=== PATIENT | male | born 1960 | race African-American/Black ===

== ENCOUNTER 2018-03-05 07:15 | Emergency (ER) | payer OTHER ==
--- NOTE | 2018-03-05 07:41 | ER ---
Nurse's Notes [facility] Name: Harrison Cameron Age: 57 yrs Sex: Male : 1960 Arrival Date: 03/05/2018 Time: 07:19 Bed 13 Private MD: Oz Dee Diagnosis: Local infection of the skin and subcutaneous tissue, unspecified;Cough Presentation: 03/05 07:26 Presenting complaint: Patient states: Woke up yesterday with bite on top of head and jl7 near front hairline. Appears swollen and red. Denies pain. Transition of care: patient was not received from another setting of care. Onset of symptoms was March 04, 2018. Risk Assessment: Do you want to hurt yourself or someone else? Patient reports no desire to harm self or others. Initial Sepsis Screen: Does the patient meet any 2 criteria? No. Patient's initial sepsis screen is negative. Does the patient have a suspected source of infection? No. Patient's initial sepsis screen is negative. Care prior to arrival: None. 07:26 Method Of Arrival: Ambulatory [facility] 07:26 Acuity: RAJINDER 5 jl7 Triage Assessment: 07:31 Bite description: bite sustained to top of head is superficial, was sustained 1 day jl7 ago. by an unknown animal, animal information: vaccination(s) is unknown. General: Appears in no apparent distress. comfortable, Behavior is calm, cooperative, appropriate for age. Pain: Denies pain. EENT: No signs and/or symptoms were reported regarding the EENT system. Neuro: Level of Consciousness is awake, alert, obeys commands, Oriented to person, place, time, situation. Cardiovascular: Patient's skin is warm and dry. Respiratory: Airway is patent Respiratory effort is even, unlabored, Respiratory pattern is regular, symmetrical. GI: No signs and/or symptoms were reported involving the gastrointestinal system. : No signs and/or symptoms were reported regarding the genitourinary system. Derm: Skin is pink, warm \\T\\ dry. Historical: - Allergies: : No Known Allergies; jl7 - Home Meds: : Bystolic oral oral [Active]; Plavix Oral [Active]; Hydralazine Oral [Active]; jl7 - PMHx: : Hypertension; CVA; 7 - PSHx: 07:31 None; jl7 - Immunization history:: Adult Immunizations up to date. - Social history:: Smoking status: Patient uses tobacco products, smokes one-half pack cigarettes per day, Patient uses alcohol, on a daily basis. admits to "couple of beers" a day. Patient/guardian denies using street drugs. - Ebola Screening: : No symptoms or risks identified at this time. Screenin:25 Abuse screen: Denies threats or abuse. Denies injuries from another. Nutritional hb screening: No deficits noted. Tuberculosis screening: No symptoms or risk factors identified. Fall Risk None identified. Assessment: 07:40 General: See triage assessment. jl7 Vital Signs: 07:24 BP 180 / 108; Pulse 67; Resp 16; Temp 98.6(TE); Pulse Ox 97% on R/A; hb ED Course: 07:19 Patient arrived in ED. sb2 07:19 Oz Dee MD is Private Physician. sb2 07:21 Aura Richards RN is Primary Nurse. jl7 07:24 Arm band placed on left wrist. hb 07:25 Patient has correct armband on for positive identification. Bed in low position. Call hb light in reach. 07:29 Triage completed. jl7 07:29 Chester Reilly PA is PHCP. jr8 07:29 Davon Vargas MD is Attending Physician. jr8 07:40 Oz Dee MD is Referral Physician. jr8 07:56 No provider procedures requiring assistance completed. Patient did not have IV access hb during this emergency room visit. Administered Medications: No medications were administered Outcome: 07:41 Discharge ordered by . jr8 07:56 Discharged to home ambulatory. hb 07:56 Condition: stable 07:56 Discharge instructions given to patient, Instructed on discharge instructions, follow up and referral plans. medication usage, Demonstrated understanding of instructions, follow-up care, medications, wound care, Prescriptions given X 2. 07:57 Patient left the ED. jl7 Signatures: Chester Reilly PA PA jr8 Marilynn Campuzano, RN RN Aura Richards RN RN jl7 Lesley Gaines sb2
--- NOTE | 2018-03-05 07:42 | EDPHYS ---
Physician Documentation [facility] Name: Harrison Cameron Age: 57 yrs Sex: Male : 1960 Arrival Date: 03/05/2018 Time: 07:19 Bed 13 Private MD: Oz Dee ED Physician Davon Vargas HPI: 03/05 07:42 This 57 yrs old Black Male presents to ER via Ambulatory with complaints of Insect Bite jr8 and cough. 07:42 Patient stated that he felt as if mosquitos were biting him on his head when going to jr8 work yesterday. Had woken up this morning with redness to top of head. Also has had cough for last two days. Denies fevers or shortness of breath. Severity of symptoms: At their worst the symptoms were mild in the emergency department the symptoms are unchanged. The patient has not experienced similar symptoms in the past. The patient has not recently seen a physician. Historical: - Allergies: 07:31 No Known Allergies; jl7 - Home Meds: 07:31 Bystolic oral oral [Active]; Plavix Oral [Active]; Hydralazine Oral [Active]; jl7 - PMHx: 07:31 Hypertension; CVA; jl7 - PSHx: 07:31 None; jl7 - Immunization history:: Adult Immunizations up to date. - Social history:: Smoking status: Patient uses tobacco products, smokes one-half pack cigarettes per day, Patient uses alcohol, on a daily basis. admits to "couple of beers" a day. Patient/guardian denies using street drugs. - Ebola Screening: : No symptoms or risks identified at this time. ROS: 07:42 Eyes: Negative for injury, pain, redness, and discharge, ENT: Negative for injury, jr8 pain, and discharge, Neck: Negative for injury, pain, and swelling, Cardiovascular: Negative for chest pain, palpitations, and edema, Abdomen/GI: Negative for abdominal pain, nausea, vomiting, diarrhea, and constipation, Back: Negative for injury and pain, MS/Extremity: Negative for injury and deformity, Neuro: Negative for headache, weakness, numbness, tingling, and seizure. 07:42 Respiratory: Positive for cough, Negative for dyspnea on exertion, hemoptysis, orthopnea, pleurisy, shortness of breath, sputum production, wheezing. 07:42 Skin: Positive for erythema, of the scalp. Exam: 07:42 Head/Face: Normocephalic, atraumatic. Eyes: Pupils equal round and reactive to light, jr8 extra-ocular motions intact. Lids and lashes normal. Conjunctiva and sclera are non-icteric and not injected. Cornea within normal limits. Periorbital areas with no swelling, redness, or edema. ENT: Nares patent. No nasal discharge, no septal abnormalities noted. Tympanic membranes are normal and external auditory canals are clear. Oropharynx with no redness, swelling, or masses, exudates, or evidence of obstruction, uvula midline. Mucous membranes moist. Neck: Trachea midline, no thyromegaly or masses palpated, and no cervical lymphadenopathy. Supple, full range of motion without nuchal rigidity, or vertebral point tenderness. No Meningismus. Cardiovascular: Regular rate and rhythm with a normal S1 and S2. No gallops, murmurs, or rubs. Normal PMI, no JVD. No pulse deficits. Respiratory: Lungs have equal breath sounds bilaterally, clear to auscultation and percussion. No rales, rhonchi or wheezes noted. No increased work of breathing, no retractions or nasal flaring. Abdomen/GI: Soft, non-tender, with normal bowel sounds. No distension or tympany. No guarding or rebound. No evidence of tenderness throughout. Back: No spinal tenderness. No costovertebral tenderness. Full range of motion. MS/ Extremity: Pulses equal, no cyanosis. Neurovascular intact. Full, normal range of motion. Neuro: Awake and alert, GCS 15, oriented to person, place, time, and situation. Cranial nerves II-XII grossly intact. Motor strength 5/5 in all extremities. Sensory grossly intact. Cerebellar exam normal. Normal gait. 07:42 Skin: Patient has mild erythema to two areas on scalp. Small well circumscribed area to top of head without pustule or vesicles. Another small scattered region of erythema noted to left frontal region of scalp. No vesicles, papules, or pustules noted. Vital Signs: 07:24 BP 180 / 108; Pulse 67; Resp 16; Temp 98.6(TE); Pulse Ox 97% on R/A; hb MDM: 07:29 Patient medically screened. jr8 07:40 Data reviewed: vital signs, nurses notes, and as a result, I will discharge patient. jr8 Data interpreted: Pulse oximetry: on room air is 97 %. Interpretation: normal. Counseling: I had a detailed discussion with the patient and/or guardian regarding: the historical points, exam findings, and any diagnostic results supporting the discharge/admit diagnosis, the need for outpatient follow up, a family practitioner, to return to the emergency department if symptoms worsen or persist or if there are any questions or concerns that arise at home. Administered Medications: No medications were administered Disposition: 11:14 Co-signature as Attending Physician, Davon Vargas MD. rn Disposition: 03/05/18 07:41 Discharged to Home. Impression: Local infection of the skin and subcutaneous tissue, unspecified, Cough. - Condition is Stable. - Discharge Instructions: Cellulitis, Rash, Cough, Adult. - Prescriptions for Bactroban 2 % Topical Ointment - Apply to affected area 1 application by TOPICAL route every 12 hours; 30 gram. Prednisone 20 mg Oral Tablet - take 1 tablet by ORAL route once daily for 5 days; 5 tablet. - Medication Reconciliation Form, Thank You Letter, Antibiotic Education, Prescription Opioid Use form. - Follow up: Oz Dee MD; When: 1 week; Reason: Recheck today's complaints, Continuance of care, Re-evaluation by your physician. - Problem is new. - Symptoms have improved. Signatures: Davon Vargas MD MD rn Roszak, Josh, PA PA jr8 Aura Richards RN RN jl7 Corrections: (The following items were deleted from the chart) 07:57 07:41 03/05/2018 07:41 Discharged to Home. Impression: Local infection of the skin and jl7 subcutaneous tissue, unspecified; Cough. Condition is Stable. Forms are Medication Reconciliation Form, Thank You Letter, Antibiotic Education, Prescription Opioid Use. Follow up: Oz Dee; When: 1 week; Reason: Recheck today's complaints, Continuance of care, Re-evaluation by your physician. Problem is new. Symptoms have improved. jr8
[2018-03-05 08:15] VITALS: BP 180/108; TEMP 98.6; O2SAT 97
== END 2018-03-05 07:57 | disposition home or self-care (01) ==
LOC: ER 07:15
DX: L08.9 Local infection of the skin and subcutaneous tissue, unspecified (principal); R05 Cough
CPT/HCPCS: 99282

== ENCOUNTER 2018-03-14 13:21 | Emergency (ER) | payer OTHER, SELFPAY ==
[2018-03-14 15:59] LABS: Absolute Lymphocytes (CBC) 2.3 K/uL (0.7-4.9); Absolute Monocytes 1.1 K/uL (0.1-1.3); Absolute Neutrophil 4.1 K/uL (1.8-8.0); Basophils % 0.6 % (0-1.3); Eosinophils % 1.2 % (0-4.4); Hematocrit 46.8 % (39.6-49.0); Lymphocytes % 30.2 % (15.3-44.8); MCH 30.2 pg (27.0-35.0); MPV 6.8 fL (7.6-11.3); Monocytes % 14.5 % (3.3-12.3); RBC Red Blood Cell Count 5.25 M/uL (4.33-5.43)
[2018-03-14 16:09] LABS: Potassium 3.7 mEq/L (3.6-5.0)
[2018-03-14 16:15] LABS: Albumin 4.5 g/dL (3.2-5.5); Bilirubin Direct 0.1 mg/dL (0-0.2); Bilirubin Total 0.7 mg/dL (0.3-1.2); Protein, Total 8.7 g/dL (6.0-8.3)
--- NOTE | 2018-03-14 16:16 | RAD REPORT ---
EXAM DESCRIPTION: CT - Stone Protocol - 03/14/2018 3:26 pm CLINICAL HISTORY: Abdominal pain. Left flank pain for 3 days COMPARISON: None. TECHNIQUE: Computed axial tomography of the abdomen pelvis was obtained without oral or IV contrast. Lack of IV and oral contrast limits evaluation of solid organs, bowel, and vessels. Coronal reformat thao images were obtained and reviewed. All CT scans are performed using dose optimization technique as appropriate and may include automated exposure control or mA/KV adjustment according to patient size. FINDINGS: A renal calculus is not seen. An ureteral calculus is not noted. A bladder calculus is not present. The liver, spleen, pancreas and adrenals appear grossly normal There is no evidence of diverticulitis. The appendix appears normal A moderate amount of stool is present throughout the colon . Atherosclerotic changes are seen IMPRESSION: Negative for a genitourinary calculus
[2018-03-14 17:23] LABS: Urine Blood NEGATIVE (NEG); Urine Glucose NEGATIVE (NEG); Urine Protein NEGATIVE (NEG); Urine pH 5.5 (5.0-7.0)
[2018-03-14 17:26] LABS: Urine Bacteria <20 /HPF (NONE SEEN); Urine Culture Reflex Order NOT NEEDED; Urine Mucus 3+ /HPF (NONE SEEN); Urine RBC <5 /HPF (NONE SEEN)
--- NOTE | 2018-03-14 18:15 | EDPHYS ---
Physician Documentation [facility] Name: Harrison Cameron Age: 57 yrs Sex: Male : 1960 Arrival Date: 03/14/2018 Time: 13:24 Bed 15 Private MD: Oz Dee ED Physician Jez Hinds HPI: 03/14 15:43 This 57 yrs old Black Male presents to ER via Ambulatory with complaints of Left flank pm1 pain. 15:43 The patient presents with pain that is acute, with no known mechanism of injury. The pm1 symptoms are located in the left low back. Onset: The symptoms/episode began/occurred 3 day(s) ago. The pain radiates. Associated signs and symptoms: Pertinent negatives: abdominal pain, chest pain, dysuria, fever, nausea, numbness, tingling, vomiting, SOB. The problem was sustained from unknown cause. Modifying factors: The patient symptoms are alleviated by Bending over when pain attacks, the patient symptoms are aggravated by nothing. Severity of symptoms: in the emergency department the symptoms have improved. The patient has not experienced similar symptoms in the past. The patient has not recently seen a physician. Historical: - Allergies: 13:57 No Known Allergies; aj - Home Meds: 13:57 Bystolic Oral [Active]; Hydralazine Oral [Active]; Plavix Oral [Active]; atorvastatin aj oral oral [Active]; - PMHx: 13:57 CVA; Hypertension; aj - PSHx: 13:57 None; aj - Immunization history:: Adult Immunizations up to date. - Social history:: Smoking status: Patient uses tobacco products, smokes one-half pack cigarettes per day. - Ebola Screening: : Patient negative for fever greater than or equal to 101.5 degrees Fahrenheit, and additional compatible Ebola Virus Disease symptoms Patient denies exposure to infectious person Patient denies travel to an Ebola-affected area in the 21 days before illness onset. ROS: 15:43 Constitutional: Negative for fever, chills, and weight loss, Eyes: Negative for injury, pm1 pain, redness, and discharge, ENT: Negative for injury, pain, and discharge, Neck: Negative for injury, pain, and swelling, Cardiovascular: Negative for chest pain, palpitations, and edema, Respiratory: Negative for shortness of breath, cough, wheezing, and pleuritic chest pain, Abdomen/GI: Negative for abdominal pain, nausea, vomiting, diarrhea, and constipation. 15:43 : Negative for injury, bleeding, discharge, and swelling, MS/Extremity: Negative for injury and deformity, Skin: Negative for injury, rash, and discoloration, Neuro: Negative for headache, weakness, numbness, tingling, and seizure. 15:43 Back: Positive for flank pain, on the left, Negative for decreased range of motion. Exam: 15:43 Constitutional: This is a well developed, well nourished patient who is awake, alert, pm1 and in no acute distress. Head/Face: Normocephalic, atraumatic. Eyes: Pupils equal round and reactive to light, extra-ocular motions intact. Lids and lashes normal. Conjunctiva and sclera are non-icteric and not injected. Cornea within normal limits. Periorbital areas with no swelling, redness, or edema. ENT: Nares patent. No nasal discharge, no septal abnormalities noted. Tympanic membranes are normal and external auditory canals are clear. Oropharynx with no redness, swelling, or masses, exudates, or evidence of obstruction, uvula midline. Mucous membranes moist. Neck: Trachea midline, no thyromegaly or masses palpated, and no cervical lymphadenopathy. Supple, full range of motion without nuchal rigidity, or vertebral point tenderness. No Meningismus. Chest/axilla: Normal chest wall appearance and motion. Nontender with no deformity. No lesions are appreciated. Cardiovascular: Regular rate and rhythm with a normal S1 and S2. No gallops, murmurs, or rubs. No pulse deficits. Respiratory: Lungs have equal breath sounds bilaterally, clear to auscultation and percussion. No rales, rhonchi or wheezes noted. No increased work of breathing, no retractions or nasal flaring. Abdomen/GI: Soft, non-tender, with normal bowel sounds. No distension or tympany. No guarding or rebound. No evidence of tenderness throughout. 15:43 Skin: Warm, dry with normal turgor. Normal color with no rashes, no lesions, and no evidence of cellulitis. MS/ Extremity: Pulses equal, no cyanosis. Neurovascular intact. Full, normal range of motion. 15:43 Back: pain, is absent, normal spinal alignment noted, vertebral tenderness, is not appreciated. 15:43 Neuro: Orientation: is normal, Motor: is normal, moves all fours, Sensation: is normal, no obvious gross deficits. Vital Signs: 13:58 BP 150 / 110; Pulse 70; Resp 16; Temp 97.5; Pulse Ox 97% on R/A; Weight 65.77 kg; aj Height 5 ft. 7 in. (170.18 cm); 16:12 BP 149 / 98; Pulse 62; Resp 16; Pulse Ox 100% on R/A; ae1 17:09 BP 141 / 91; Pulse 60; Resp 16; Pulse Ox 99% on R/A; ae1 13:58 Body Mass Index 22.71 (65.77 kg, 170.18 cm) aj MDM: 15:02 Patient medically screened. pm1 15:46 Data reviewed: vital signs. Data interpreted: Pulse oximetry: on room air is 97 %. pm1 Interpretation: normal. 16:18 Counseling: I had a detailed discussion with the patient and/or guardian regarding: the pm1 historical points, exam findings, and any diagnostic results supporting the discharge/admit diagnosis, lab results, radiology results, the need for outpatient follow up, to return to the emergency department if symptoms worsen or persist or if there are any questions or concerns that arise at home. 03/14 15:12 Order name: Basic Metabolic Panel; Complete Time: 16:17 pm1 03/14 15:12 Order name: CBC with Diff; Complete Time: 16:17 pm1 03/14 15:12 Order name: Hepatic Function; Complete Time: 16:17 pm1 03/14 15:12 Order name: Lipase; Complete Time: 16:17 pm1 03/14 15:12 Order name: Urine Microscopic Only; Complete Time: 17:35 pm1 03/14 17:12 Order name: Urine Dipstick--Ancillary (enter results); Complete Time: 17:35 aa5 03/14 15:12 Order name: IV Saline Lock; Complete Time: 15:53 pm1 03/14 15:12 Order name: Labs collected and sent; Complete Time: 15:53 pm1 03/14 15:12 Order name: Urine Dipstick-Ancillary (obtain specimen); Complete Time: 16:21 pm1 03/14 15:12 Order name: CT Stone Protocol; Complete Time: 16:17 pm1 Administered Medications: No medications were administered Disposition: 03/14/18 18:14 Discharged to Home. Impression: Low back pain. - Condition is Stable. - Discharge Instructions: Back Pain, Adult. - Medication Reconciliation Form, Thank You Letter, Work release form form. - Follow up: Emergency Department; When: As needed; Reason: Worsening of condition. Follow up: Oz Dee MD; When: 2 - 3 days; Reason: Recheck today's complaints, Continuance of care, Re-evaluation by your physician. - Problem is new. - Symptoms have improved. Addendum: 03/16/2018 13:37 Co-signature as Attending Physician, Jez Hinds MD. g s Signatures: Dispatcher [employer] EDMS Catie Mendoza RN RN aj Prince Berrios NP WAITER/WAITRESS HEAD pm1 Jose Luis De La Rosa RN RN ae1 Jez Hinds MD MD Corrections: (The following items were deleted from the chart) 03/14 18:25 18:14 03/14/2018 18:14 Discharged to Home. Impression: Low back pain. Condition is ae1 Stable. Forms are Medication Reconciliation Form, Thank You Letter, Antibiotic Education, Prescription Opioid Use. Follow up: Emergency Department; When: As needed; Reason: Worsening of condition. Follow up: Oz Dee; When: 2 - 3 days; Reason: Recheck today's complaints, Continuance of care, Re-evaluation by your physician. Problem is new. Symptoms have improved. pm1
--- NOTE | 2018-03-14 18:15 | ER ---
Nurse's Notes [facility] Name: Harrison Cameron Age: 57 yrs Sex: Male : 1960 Arrival Date: 03/14/2018 Time: 13:24 Bed 15 Private MD: Oz Dee Diagnosis: Low back pain Presentation: 03/14 13:55 Presenting complaint: Patient states: Left flank pain for 3 days that is worse with aj movement. Denies urinary symptoms. Transition of care: patient was not received from another setting of care. Onset of symptoms was March 11, 2018. Risk Assessment: Do you want to hurt yourself or someone else? Patient reports no desire to harm self or others. Care prior to arrival: None. 13:55 Method Of Arrival: Ambulatory 13:55 Acuity: RAJINDER 3 aj 16:13 Initial Sepsis Screen: Does the patient meet any 2 criteria? No. Patient's initial ae1 sepsis screen is negative. Does the patient have a suspected source of infection? No. Patient's initial sepsis screen is negative. Triage Assessment: 13:57 General: Appears in no apparent distress. comfortable, Behavior is calm, cooperative, aj appropriate for age. Pain: Complains of pain in left low back, left mid back, anterior aspect of left lateral abdomen and posterior aspect of left lateral abdomen Pain currently is 7 out of 10 on a pain scale. Neuro: Level of Consciousness is awake, alert, obeys commands, Oriented to person, place, time, situation, Appropriate for age. Respiratory: Airway is patent Respiratory effort is even, unlabored, Respiratory pattern is regular, symmetrical. Derm: Skin is intact, is healthy with good turgor, Skin is pink, warm \T\ dry. normal. Musculoskeletal: Range of motion: intact in all extremities, Reports pain in anterior aspect of left lateral abdomen and posterior aspect of left lateral abdomen. Historical: - Allergies: 13:57 No Known Allergies; aj - Home Meds: 13:57 Bystolic Oral [Active]; Hydralazine Oral [Active]; Plavix Oral [Active]; atorvastatin aj oral oral [Active]; - PMHx: 13:57 CVA; Hypertension; aj - PSHx: 13:57 None; aj - Immunization history:: Adult Immunizations up to date. - Social history:: Smoking status: Patient uses tobacco products, smokes one-half pack cigarettes per day. - Ebola Screening: : Patient negative for fever greater than or equal to 101.5 degrees Fahrenheit, and additional compatible Ebola Virus Disease symptoms Patient denies exposure to infectious person Patient denies travel to an Ebola-affected area in the 21 days before illness onset. Screenin:53 Abuse screen: Denies threats or abuse. Nutritional screening: No deficits noted. ae1 Tuberculosis screening: No symptoms or risk factors identified. Fall Risk None identified. Assessment: 15:15 General: Appears in no apparent distress. uncomfortable, slender, Behavior is calm, ae1 cooperative. Pain: Complains of pain in left low back and left mid back. Neuro: Level of Consciousness is awake, alert, obeys commands, Oriented to person, place, time, situation. Cardiovascular: Heart tones S1 S2 present Patient's skin is warm and dry. Respiratory: Airway is patent Respiratory effort is even, unlabored, Respiratory pattern is regular, symmetrical, Breath sounds are clear bilaterally. GI: No signs and/or symptoms were reported involving the gastrointestinal system. : No signs and/or symptoms were reported regarding the genitourinary system. EENT: No signs and/or symptoms were reported regarding the EENT system. Derm: Skin is normal. Musculoskeletal: no visible swelling, bruising or deformity. patient denies injury. 17:08 Reassessment: Patient appears in no apparent distress at this time. Patient and/or ae1 family updated on plan of care and expected duration. Pain level reassessed. Patient states feeling better. Vital Signs: 13:58 BP 150 / 110; Pulse 70; Resp 16; Temp 97.5; Pulse Ox 97% on R/A; Weight 65.77 kg; aj Height 5 ft. 7 in. (170.18 cm); 16:12 BP 149 / 98; Pulse 62; Resp 16; Pulse Ox 100% on R/A; ae1 17:09 BP 141 / 91; Pulse 60; Resp 16; Pulse Ox 99% on R/A; ae1 13:58 Body Mass Index 22.71 (65.77 kg, 170.18 cm) aj ED Course: 13:24 Patient arrived in ED. sb2 13:24 Oz Dee MD is Private Physician. sb2 13:56 Triage completed. aj 13:58 Arm band placed on left wrist. Patient placed in waiting room, Patient notified of wait aj time. 14:57 Jose Luis De La Rosa, RN is Primary Nurse. ae1 15:01 Prince [facility]. pm1 15:01 Jez Hinds MD is Attending Physician. pm1 15:[address] via wheelchair. 15:26 CT Stone Protocol In Process Unspecified. EDMS 15:53 Inserted saline lock: 24 gauge in right antecubital area, using aseptic technique. ae1 Blood collected. 15:54 Placed in gown. Bed in low position. Call light in reach. Side rails up X 1. Pulse ox ae1 on. NIBP on. 18:14 Oz Dee MD is Referral Physician. pm1 18:24 No provider procedures requiring assistance completed. IV discontinued, intact, ae1 bleeding controlled, No redness/swelling at site. Pressure dressing applied. Administered Medications: No medications were administered Outcome: 18:14 Discharge ordered by MD. pm1 18:24 Discharged to home ambulatory. ae1 18:24 Condition: stable 18:24 Discharge instructions given to patient, Instructed on discharge instructions, follow up and referral plans. Demonstrated understanding of instructions. 18:25 Patient left the ED. ae1 Signatures: Dispatcher [employer] EDMS Catie Mendoza RN RN aj Warren, Shannon Prince Berrios NP IT APPLICATION DEVELOPMENT MANAGER pm1 Jose Luis De La Rosa, RN RN ae1 Lesley Gaines sb2 Corrections: (The following items were deleted from the chart) 13:58 13:55 Acuity: RAJINDER 3 aj 13:59 13:55 Acuity: RAJINDER 4 aj
[2018-03-14 18:37] VITALS: TEMP 97.5
[2018-03-14 18:40] VITALS: BP 141/91; O2SAT 99
== END 2018-03-14 18:25 | disposition home or self-care (01) ==
LOC: ER 13:21
DX: M54.5 Low back pain (principal); I10 Essential (primary) hypertension; F17.210 Nicotine dependence, cigarettes, uncomplicated; Z79.01 Long term (current) use of anticoagulants; Z86.73 Personal history of transient ischemic attack (TIA), and cerebral infarction without residual deficits
CPT/HCPCS: 36415; 74176; 76377; 80048; 80076; 81003; 81015; 83690; 85025; 99284

== ENCOUNTER 2023-07-18 23:27 | Emergency (ER) | payer OTHER ==
--- OUTSIDE RECORDS SUMMARY | 2023-07-18 23:31 | XMS REPORT | Continuity of Care Document ---
:1960 Author Organization [facility] t Address [address] [facility] [address] [place] [address] Care Team Providers Name Role Phone SHYPEPE Attending Clinician Unavailable [place], General Cardiology Attending Clinician Unavailable Doctor Unassigned, Supreme Attending Clinician Unavailable Leila MORIN, Oz Garcia Attending Clinician Payers Payer Name Policy Type Policy Number Effective Date Expiration Date S ource [employer] [id number] 00:00:00 [facility] [id number] 2022 CHOICE [place] STAR 00:00:00 Problems Condition Condition Condition Status Onset Resolution Last Treating Co mments Source Name Details Category Date Date Treatment Clinician Date Essential Essential Disease Active Uni vers hypertensi hypertensi 2-15 it y of on on 00:00: [place] 00 Medical Branch Cerebrovas Cerebrovas Disease Active U nivers cular cular 2-15 ity of accident accident 00:00: [place] (CVA) due (CVA) due 00 [facility] seamus to to Branch vascular vascular occlusion occlusion Hyperchole Hyperchole Disease Active U nivers sterolemia sterolemia 2-15 it y of 00:00: [place] 00 Medical Branch Allergies, Adverse Reactions, Alerts Allergy Allergy Status Severity Reaction(s) Onset Inactive Treating Comm ents Source Name Type Date Date Clinician Penicill Propensi Active Swelling Univ ers in ty to 06-17 ity of adverse 00:00: [place] reaction 00 Medical s Branch CARVEDIL DRUG Active SOB Univers OL INGREDI 06-17 ity of 00:00: [place] 00 Medical Branch LISINOPR DRUG Active SOB Univers IL INGREDI 06-17 ity of 00:00: [place] 00 Medical Branch PENICILL DRUG Active Swelling Univer s IN INGREDI 06-17 ity of 00:00: [place] 00 Medical Branch Carvedil Propensi Active Shortness of Univers ol ty to Breath 06-17 ity of adverse 00:00: [place] reaction Medical s Branch Lisinopr Propensi Active Shortness of Univers il ty to Breath 06-17 ity of adverse 00:00: [place] reaction Medical s Branch Penicill Propensi Active Swelling Univ ers in ty to 06-17 ity of adverse 00:00: [place] reaction 00 Medical s Branch Social History Social Habit Start Date Stop Date Quantity Comments Source History of tobacco Cigarette Smoker University of use [facility] Alcohol intake 2022-04-24 2022-04-24 3.43 /d University of 00:00:00 00:00:00 [facility] Tobacco use and 2016-11-28 2016-11-28 Smokeless Universit y of exposure 00:00:00 00:00:00 tobacco non-user [facility] [place] [facility] Cigarettes smoked 2016-11-28 2016-11-28 Univers ity of current (pack per 00:00:00 00:00:00 ) - Reported Branch Alcohol Comment 2016-11-28 2016-11-28 occ Universit y of 00:00:00 00:00:00 [facility] Sex [birth year] Universit y of 00:00:00 00:00:00 [facility] Smoking Status Start Date Stop Date Source Smokes tobacco daily 2016-11-28 00:00:00 Univers ity of [facility] Medications Ordered Filled Start Stop Current Ordering Indication Dosage Frequency Signature Comments Components Source Medication Medication Date Date Medication? Clinician (SIG) Name Name HYDRALAZINE 2018-10 Yes [id number] TAKE 1 Univers 10 mg 0-04 TABLET BY ity of tablet 00:00: MOUTH THREE Medical TIMES A Branch DAY HYDRALAZINE 2018-10 Yes [id number] TAKE 1 Univers 10 mg 0-04 TABLET BY ity of tablet 00:00: MOUTH THREE Medical TIMES A Branch DAY HYDRALAZINE 2018-10 Yes [id number] TAKE 1 Univers 10 mg 0-04 TABLET BY ity of tablet 00:00: MOUTH [place] 00 THREE Medical TIMES A Branch DAY HYDRALAZINE 2018-10 Yes [id number] TAKE 1 Univers 10 mg 0-04 TABLET BY ity of tablet 00:00: MOUTH [place] 00 THREE Medical TIMES A Branch DAY HYDRALAZINE 2018-10 Yes [id number] TAKE 1 Univers 10 mg 0-04 TABLET BY ity of tablet 00:00: MOUTH [place] 00 THREE Medical TIMES A Branch DAY hydrALAZINE 0 Yes [id number] 10mg Take 1 Univers 10 mg 9-10 tablet by ity of tablet 00:00: mouth 3 [place] (three) Medical times Branch daily. atorvastati Yes [id number] 80mg Take 1 Univers n 80 mg 9-10 tablet by ity of tablet 00:00: mouth [place] 00 daily. Medical Branch losartan Yes [id number] 100mg Take 1 Un peña 100 mg 9-10 tablet by ity of tablet 00:00: mouth [place] 00 daily. Medical Branch hydrALAZINE Yes [id number] 10mg Take 1 Univers 10 mg 9-10 tablet by ity of tablet 00:00: mouth 3 (three) Medical times Branch daily. atorvastati Yes [id number] 80mg Take 1 Univers n 80 mg 9-10 tablet by ity of tablet 00:00: mouth [place] 00 daily. Medical Branch losartan 0 Yes [id number] 100mg Take 1 Un epña 100 mg 9-10 tablet by ity of tablet 00:00: mouth [place] 00 daily. Medical Branch hydrALAZINE Yes [id number] 10mg Take 1 Univers 10 mg 9-10 tablet by ity of tablet 00:00: mouth 3 (three) Medical times Branch daily. atorvastati 2018- Yes [id number] 80mg Take 1 Univers n 80 mg 9-10 tablet by ity of tablet 00:00: mouth [place] 00 daily. Medical Branch losartan 2018-0 Yes [id number] 100mg Take 1 Un peña 100 mg 9-10 tablet by ity of tablet 00:00: mouth [place] 00 daily. Medical Branch hydrALAZINE Yes [id number] 10mg Take 1 Univers 10 mg 9-10 tablet by ity of tablet 00:00: mouth 3 00 (three) Medical times Branch daily. atorvastati Yes [id number] 80mg Take 1 Univers n 80 mg 9-10 tablet by ity of tablet 00:00: mouth [place] 00 daily. Medical Branch losartan Yes [id number] 100mg Take 1 Un peña 100 mg 9-10 tablet by ity of tablet 00:00: mouth [place] 00 daily. Medical Branch hydrALAZINE Yes [id number] 10mg Take 1 Univers 10 mg 9-10 tablet by ity of tablet 00:00: mouth 3 [place] 00 (three) Medical times Branch daily. atorvastati Yes [id number] 80mg Take 1 Univers n 80 mg 9-10 tablet by ity of tablet 00:00: mouth [place] 00 daily. Medical Branch losartan Yes [id number] 100mg Take 1 Un peña 100 mg 9-10 tablet by ity of tablet 00:00: mouth [place] 00 daily. Medical Branch hydrALAZINE Yes [id number] 10mg Take 1 Univers 10 mg 9-10 tablet by ity of tablet 00:00: mouth 3 [place] 00 (three) Medical times Branch daily. atorvastati Yes [id number] 80mg Take 1 Univers n 80 mg 9-10 tablet by ity of tablet 00:00: mouth [place] 00 daily. Medical Branch losartan Yes [id number] 100mg Take 1 Un peña 100 mg 9-10 tablet by ity of tablet 00:00: mouth [place] 00 daily. Medical Branch hydrALAZINE Yes [id number] 10mg Take 1 Univers 10 mg 9-10 tablet by ity of tablet 00:00: mouth 3 [place] 00 (three) Medical times Branch daily. atorvastati Yes [id number] 80mg Take 1 Univers n 80 mg 9-10 tablet by ity of tablet 00:00: mouth [place] 00 daily. Medical Branch losartan Yes [id number] 100mg Take 1 Un peña 100 mg 9-10 tablet by ity of tablet 00:00: mouth [place] 00 daily. Medical Branch CLOPIDOGREL Yes [id number] TAKE 1 Univers 75 mg 9-06 [id number] TABLET BY ity of tablet 00:00: MOUTH [place] 00 EVERY DAY Medical Branch clopidogrel 2018-0 Yes [id number] 75mg Take 1 Univers 75 mg 9-06 [id number] tablet by ity of tablet 00:00: mouth [place] 00 daily. Medical Branch CLOPIDOGREL 2018- Yes [id number] TAKE 1 Univers 75 mg 9-06 [id number] TABLET BY ity of tablet 00:00: MOUTH [place] 00 EVERY DAY Medical Branch clopidogrel 2019-0 Yes [id number] 75mg Take 1 Univers 75 mg 9-06 [id number] tablet by ity of tablet 00:00: mouth [place] 00 daily. Medical Branch CLOPIDOGREL 2019-0 Yes [id number] TAKE 1 Univers 75 mg 9-06 [id number] TABLET BY ity of tablet 00:00: MOUTH [place] 00 EVERY DAY Medical Branch clopidogrel 2019-0 Yes [id number] 75mg Take 1 Univers 75 mg 9-06 [id number] tablet by ity of tablet 00:00: mouth [place] 00 daily. Medical Branch CLOPIDOGREL 2019-0 Yes [id number] TAKE 1 Univers 75 mg 9-06 [id number] TABLET BY ity of tablet 00:00: MOUTH [place] 00 EVERY DAY Medical Branch atorvastati 2019-0 Yes [id number] 80mg Take 1 Univers n 80 mg 9-06 tablet by ity of tablet 00:00: mouth [place] 00 daily. Medical Branch hydrALAZINE 2019-0 Yes [id number] 10mg Take 1 Univers 10 mg 9-06 tablet by ity of tablet 00:00: mouth 3 [place] 00 (three) Medical times Branch daily. clopidogrel 2019-0 Yes [id number] 75mg Take 1 Univers 75 mg 9-06 [id number] tablet by ity of tablet 00:00: mouth [place] 00 daily. Medical Branch CLOPIDOGREL 2019-0 Yes [id number] TAKE 1 Univers 75 mg 9-06 [id number] TABLET BY ity of tablet 00:00: MOUTH [place] 00 EVERY DAY Medical Branch clopidogrel 2019-0 Yes [id number] 75mg Take 1 Univers 75 mg 9-06 [id number] tablet by ity of tablet 00:00: mouth [place] 00 daily. Medical Branch CLOPIDOGREL 2019-0 Yes [id number] TAKE 1 Univers 75 mg 9-06 [id number] TABLET BY ity of tablet 00:00: MOUTH [place] 00 EVERY DAY Medical Branch clopidogrel 2019-0 Yes [id number] 75mg Take 1 Univers 75 mg 9-06 [id number] tablet by ity of tablet 00:00: mouth [place] 00 daily. Medical Branch CLOPIDOGREL 2019-0 Yes [id number] TAKE 1 Univers 75 mg 9-06 [id number] TABLET BY ity of tablet 00:00: MOUTH [place] 00 EVERY DAY Medical Branch clopidogrel 2019-0 Yes [id number] 75mg Take 1 Univers 75 mg 9-06 [id number] tablet by ity of tablet 00:00: mouth [place] 00 daily. Medical Branch CLOPIDOGREL 2019-0 Yes [id number] TAKE 1 Univers 75 mg 9- 140007 TABLET BY ity of tablet 00:00: MOUTH [place] 00 EVERY DAY Medical Branch clopidogrel 2019-0 Yes [id number] 75mg Take 1 Univers 75 mg 9- 602415 tablet by ity of tablet 00:00: mouth [place] 00 daily. Medical Branch atorvastati 2018- 2019- No [id number] 80mg Take 1 Univers n 80 mg 9- 09-10 tablet by ity of tablet 00:00: 00:00 mouth [place] 00 :00 daily. Medical Branch hydrALAZINE 2018- 2019- No [id number] 10mg Take 1 Univers 10 mg 9- 09-10 tablet by ity of tablet 00:00: 00:00 mouth 3 [place] 00 :00 (three) Medical times Branch daily. LOSARTAN 2018-0 Yes [id number] TAKE 1 Uni vers 100 mg 8-01 TABLET BY ity of tablet 00:00: MOUTH [place] 00 EVERY DAY Medical Branch LOSARTAN 2019-0 Yes [id number] TAKE 1 Uni vers 100 mg 8-01 TABLET BY ity of tablet 00:00: MOUTH [place] 00 EVERY DAY Medical Branch LOSARTAN 2019-0 Yes [id number] TAKE 1 Uni vers 100 mg 8-01 TABLET BY ity of tablet 00:00: MOUTH [place] 00 EVERY DAY Medical Branch LOSARTAN 2019-0 Yes [id number] TAKE 1 Uni vers 100 mg 8-01 TABLET BY ity of tablet 00:00: MOUTH [place] 00 EVERY DAY Medical Branch LOSARTAN 2018-0 2019- No [id number] TAKE 1 Un peña 100 mg 8-01 09-10 TABLET BY ity of tablet 00:00: 00:00 MOUTH [place] 00 :00 EVERY DAY Medical Branch hydrALAZINE 2018-0 Yes [id number] 10mg Take 1 Univers 10 mg 7-22 tablet by ity of tablet 00:00: mouth 3 [place] 00 (three) Medical times Branch daily. hydrALAZINE 2018-0 Yes [id number] 10mg Take 1 Univers 10 mg 7-22 tablet by ity of tablet 00:00: mouth 3 [place] 00 (three) Medical times Branch daily. hydrALAZINE 2018- Yes [id number] 10mg Take 1 Univers 10 mg 7-22 tablet by ity of tablet 00:00: mouth 3 [place] 00 (three) Medical times Branch daily. hydrALAZINE 2019-0 Yes [id number] 10mg Take 1 Univers 10 mg 7-22 tablet by ity of tablet 00:00: mouth 3 [place] 00 (three) Medical times Branch daily. hydrALAZINE 2018- 2019- No [id number] 10mg Take 1 Univers 10 mg 7-22 09-06 tablet by ity of tablet 00:00: 00:00 mouth 3 [place] 00 :00 (three) Medical times Branch daily. losartan 2018-0 Yes [id number] 100mg Take 1 Un peña 100 mg 7-02 tablet by ity of tablet 00:00: mouth [place] 00 daily. Medical Branch losartan 0 2019- No [id number] 100mg Take 1 U nivers 100 mg 7- 08- tablet by ity of tablet 00:00: 00:00 mouth [place] 00 :00 daily. Medical Branch CLOPIDOGREL 2019-0 Yes [id number] TAKE 1 Univers 75 mg 6-03 [id number] TABLET BY ity of tablet 00:00: MOUTH [place] 00 EVERY DAY Medical Branch CLOPIDOGREL 2019-0 Yes [id number] TAKE 1 Univers 75 mg 6-03 [id number] TABLET BY ity of tablet 00:00: MOUTH [place] 00 EVERY DAY Medical Branch CLOPIDOGREL 2019-0 Yes [id number] TAKE 1 Univers 75 mg 6-03 [id number] TABLET BY ity of tablet 00:00: MOUTH [place] 00 EVERY DAY Medical Branch CLOPIDOGREL 2019-0 Yes [id number] TAKE 1 Univers 75 mg 6-03 [id number] TABLET BY ity of tablet 00:00: MOUTH [place] 00 EVERY DAY Medical Branch CLOPIDOGREL 2019-0 2019- No [id number] TAKE 1 Univers 75 mg 6-03 09-06 [id number] TABLET BY ity of tablet 00:00: 00:00 MOUTH [place] 00 :00 EVERY DAY Medical Branch clopidogrel 2019-0 Yes [id number] 75mg Take 1 Univers 75 mg 4-26 [id number] tablet by ity of tablet 00:00: mouth [place] 00 daily. Medical Branch clopidogrel 2019-0 Yes [id number] 75mg Take 1 Univers 75 mg 4-26 [id number] tablet by ity of tablet 00:00: mouth [place] 00 daily. Medical Branch clopidogrel 2019-0 Yes [id number] 75mg Take 1 Univers 75 mg 4-26 [id number] tablet by ity of tablet 00:00: mouth [place] 00 daily. Medical Branch clopidogrel 2019-0 Yes [id number] 75mg Take 1 Univers 75 mg 4-26 [id number] tablet by ity of tablet 00:00: mouth [place] 00 daily. Medical Branch clopidogrel 2019-0 Yes [id number] 75mg Take 1 Univers 75 mg 4-26 [id number] tablet by ity of tablet 00:00: mouth [place] 00 daily. Medical Branch clopidogrel 2019-0 Yes [id number] 75mg Take 1 Univers 75 mg 4-26 [id number] tablet by ity of tablet 00:00: mouth [place] 00 daily. Medical Branch clopidogrel 2019-0 Yes [id number] 75mg Take 1 Univers 75 mg 4-26 [id number] tablet by ity of tablet 00:00: mouth [place] 00 daily. Medical Branch clopidogrel 2019-0 Yes [id number] 75mg Take 1 Univers 75 mg 4-26 [id number] tablet by ity of tablet 00:00: mouth [place] 00 daily. Medical Branch clopidogrel 2019-0 Yes [id number] 75mg Take 1 Univers 75 mg 4-26 [id number] tablet by ity of tablet 00:00: mouth [place] 00 daily. Medical Branch clopidogrel 2019-0 Yes [id number] 75mg Take 1 Univers 75 mg 4-26 [id number] tablet by ity of tablet 00:00: mouth [place] 00 daily. Medical Branch clopidogrel 2019-0 Yes [id number] 75mg Take 1 Univers 75 mg 4-26 [id number] tablet by ity of tablet 00:00: mouth [place] 00 daily. Medical Branch clopidogrel 2019-0 Yes [id number] 75mg Take 1 Univers 75 mg 4-26 [id number] tablet by ity of tablet 00:00: mouth [place] 00 daily. Medical Branch ATORVASTATI 2018-0 Yes [id number] TAKE 1 Univers N 80 mg 2-27 TABLET BY ity of tablet 00:00: MOUTH [place] 00 EVERY DAY Medical Branch ATORVASTATI 2018-0 Yes [id number] TAKE 1 Univers N 80 mg 2-27 TABLET BY ity of tablet 00:00: MOUTH [place] 00 EVERY DAY Medical Branch ATORVASTATI 2018-0 Yes [id number] TAKE 1 Univers N 80 mg 2-27 TABLET BY ity of tablet 00:00: MOUTH [place] 00 EVERY DAY Medical Branch ATORVASTATI 2018-0 Yes [id number] TAKE 1 Univers N 80 mg 2-27 TABLET BY ity of tablet 00:00: MOUTH [place] 00 EVERY DAY Medical Branch ATORVASTATI 2018-0 2019- No [id number] TAKE 1 Univers N 80 mg 2-27 09-06 TABLET BY ity of tablet 00:00: 00:00 [facility] 00 :00 EVERY DAY Medical Branch Procedures Procedure Date / Time Performed Performing Clinician [facility] e REFERRAL- 2022-11-19 06:01:00 Doctor Unassteresita, No Univer [facility] REQUEST/RESPONSE Name Medical Branch Encounters Start End Encounter Admission Attending Care Care Encounter Source Date/Time Date/Time Type Type Clinicians Facility Department ID 2023-06-17 2023-06-17 Outpatient [facility] [id number] [place] 14:31:06 14:31:06 [id number] F Pepe 2023-01-04 2023-01-04 Outpatient R SHY [facility] [id number] Univers 10:20:00 10:20:00 PEPE burton o f [facility] 2022-11-30 2022-11-30 Letter [place], [facility] 1.2.840.114 [id number] Univers 00:00:00 00:00:00 (Out) General HEALTH 350.1.13.10 it y of Cardiology CLEAR 4.2.7.2.686 [place] [phone] [facility] 059 Branch OFFICE BUILDING 2022-11-23 2022-11-23 Outpatient [facility] [id number] [place] 17:08:15 17:08:15 [id number] F [place] 2022-11-19 2022-11-19 Orders Doctor JAKUB 1.2.840.114 [id number] Univers 00:00:00 00:00:00 Only Unassigned, ALTOYA 350.1.13.10 ity of Supreme [facility] 4.2.7.2.686 Yuan as [phone] [facility] 009 Branch 2022-11-14 2022-11-14 Outpatient [facility] [id number] [place] 09:46:58 09:46:58 [id number] F Pepe 2020-02-09 2020-02-09 Dara Dee [facility] 1.2.840.114 [id number] Univers 00:00:00 00:00:00 [facility] 350.1.13.10 it y of [place] 4.2.7.2.686 Yuan as Professio [phone] Sd dical nal 044 Branch [address] One 2020-02-04 2020-02-04 [facility] 1.2.840.114 [id number] Univers 00:00:00 00:00:00 [facility] 350.1.13.10 it y of [place] 4.2.7.2.686 Yuan as Professio [phone] Sd oly [address] One 2019-11-02 2019-11-02 [facility] 1.2.840.114 [id number] Univers 00:00:00 00:00:00 [facility] 350.1.13.10 it y of [place] 4.2.7.2.686 Yuan as Professio [phone] [address] One 2019-06-26 2019-06-26 [facility] 1.2.840.114 [id number] Univers 00:00:00 00:00:00 [facility] 350.1.13.10 it y of [place] 4.2.7.2.686 Yuan as Professio [phone] [address] One 2019-06-22 2019-06-22 [facility] 1.2.840.114 [id number] Univers 00:00:00 00:00:00 [facility] 350.1.13.10 it y of [place] 4.2.7.2.686 Yuan as Professio [phone] Sd joe[address] One 2019-06-18 2019-06-18 [facility] 1.2.840.114 [id number] Univers 00:00:00 00:00:00 [facility] 350.1.13.10 it y of [place] 4.2.7.2.686 Yuan as Professio [phone] [address] One 2019-06-12 2019-06-12 [facility] 1.2.840.114 [id number] Univers 00:00:00 00:00:00 [facility] 350.1.13.10 it y of [place] 4.2.7.2.686 Yuan as Professio [phone] Sd oly Darnell [facility] One 2019-06-07 2019-06-07 [facility] 1.2.840.114 [id number] Univers 00:00:00 00:00:00 [facility] 350.1.13.10 it y of [place] 4.2.7.2.686 Yuan as Professio [phone] Sd oly Danrell [facility] One 2019-05-14 2019-05-14 [facility] 1.2.840.114 [id number] Univers 00:00:00 00:00:00 [facility] 350.1.13.10 it y of [place] 4.2.7.2.686 Yuan as Professio [phone] Sd oly Darnell [facility] One 2019-05-10 2019-05-10 [facility] 1.2.840.114 [id number] Univers 00:00:00 00:00:00 [facility] 350.1.13.10 it y of [place] 4.2.7.2.686 Yuan as Professio [phone] [facility] kell Darnell [facility] One Results Test Description Test Time Test Comments Results Result Comments Source LIPID PANEL 2022-11-15 03:07:15 Test Item Value Reference Range Interpretation Comme nts CHOLESTEROL (test code = 2210) 269 MG/DL <200 H TRIGLYCERIDES (test code = 2232) 195 MG/DL <150 H HDL CHOLESTEROL (test code = 52 MG/DL >39 2220) CALC LDL CHOL (test code = 2237) 182 MG/DL <100 H NOTE: CALCULATED LDL IS BASED ON DHARMESH-BEY METHOD WHICHINCLUDES A DJUSTABLE TRIGLYCERIDE:VL DL CHOLESTEROL RATIO.THIS FACT OR VARIES BY MEASURED TRIGLY CERIDE AND NON-HDLCHOLESTE ROL CONCENTRATIONS WITH INCREASED CALCULATED LDL SEENIN HIGHER T RIGLYCERIDE OR LOWER NON-HDL S PECIMENS. FOR MOREINFORMATION , SEE CLIENT ANNOUNCEMENT AT [email or web address] RATIO LDL/HDL (test code = 3.50 RATIO <3.55 2238) COMPREHENSIVE METABOLIC [id number] 03:07:15 Test Item Value Reference Range Interpretation Comments GLUCOSE (test code = 73 MG/DL 70-99 2216) BUN (test code = 17 MG/DL 8-23 2207) CREATININE (test 1.23 MG/DL 0.80-1.40 code = 221) eGFR (2020 CKD-EPI) 67 >60 (test code = 53737) ML/MIN/1.73 CALC BUN/CREAT (test 14 RATIO 6-28 code = 2235) SODIUM (test code = 141 MEQ/L 321-409 7164) POTASSIUM (test code 3.9 MEQ/L 3.5-5.4 = 2227) CHLORIDE (test code 95 MEQ/L 95-107 = 2214) CARBON DIOXIDE (test 31 MEQ/L 19-31 code = 2205) CALCIUM (test code = 10.7 MG/DL 8.5-10.5 H 2208) PROTEIN, TOTAL (test 8.1 G/DL 6.1-8.3 code = 2228) ALBUMIN (test code = 5.1 G/DL 3.5-5.2 2200) CALC GLOBULIN (test 3.0 G/DL 1.9-3.7 code = 2239) CALC A/G RATIO (test 1.7 RATIO 1.0-2.6 code = 2233) BILIRUBIN, TOTAL 0.4 MG/DL See_Comment [Automated message] (test code = 2206) The syste [employer] which generated this result transmitted ref erence range: <=1.2. T he reference range was not used to int erpret this result as normal/abnormal . ALKALINE PHOSPHATASE 51 U/L 40-123 (test code = 2203) AST (test code = 21 U/L 9-50 2217) ALT (test code = 10 U/L 5-50 UNLESS OTH ERWISE 2218) INDICATED, ALL TESTING PERFORM ED [facility], [place]. [address] [place] [address] [facility] DIRECTOR: Cricket LOPEZIA NUMBER [id number] CAP ACCREDITATION N O. [id number] CBC W/AUTO DIFF WITH [id number] 02:27:00 Test Item Value Reference Range Interpretation Comments WBC (test code = 6.4 K/UL 3.5-11.0 1001) RBC (test code = 5.56 M/UL 4.50-6.10 1002) HEMOGLOBIN (test code 16.3 G/DL 13.5-17.0 = 1003) HEMATOCRIT (test code 47.8 % 40.0-51.0 = 1004) MCV (test code = 86.0 fL 80.0-99.0 1005) MCH (test code = 29.3 PG 25.0-33.0 1006) MCHC (test code = 34.1 G/DL 31.0-36.0 1007) RDW (test code = 14.0 % 11.5-15.0 1038) NEUTROPHILS (test 40.3 % code = 1008) LYMPHOCYTES (test 44.6 % code = 1010) MONOCYTES (test code 11.9 % = 1011) EOSINOPHILS (test 2.2 % code = 1012) BASOPHILS (test code 0.8 % = 1013) IMMATURE GRANULOCYTES 0.2 % (test code = 1036) NUCLEATED RBCS (test 0.0 /100 WBC'S See_Comment [Aut omated code = 1065) message] The sy stem which generated this result transmitted reference range : 0.0. The refere nce range was not u sed to interpret th is result as normal/abnormal . PLATELET COUNT (test 390 K/UL 130-400 code = 1015) ABSOLUTE NEUTROPHILS 2.58 K/UL 1.50-7.50 (test code = 1066) ABSOLUTE LYMPHOCYTES 2.85 K/UL 1.00-4.00 (test code = 1067) ABSOLUTE MONOCYTES 0.76 K/UL 0.20-1.00 (test code = 1068) ABSOLUTE EOSINOPHILS 0.14 K/UL 0.00-0.50 (test code = 1040) ABSOLUTE BASOPHILS 0.05 K/UL 0.00-0.20 (test code = 1069) ABS IMMATURE 0.01 K/UL 0.00-0.10 GRANULOCYTES (test code = 1020) ABS NUCLEATED RBCS 0.00 K/UL 0.00-0.11 (test code = 08324)
--- NOTE | 2023-07-18 23:46 | ER ---
Nurse's Notes [facility] Name: Harrison Cameron Age: 63 yrs Sex: Male : 1960 Arrival Date: 07/18/2023 Time: 23:27 Bed 4 Private MD: Diagnosis: ST elevation (STEMI) myocardial infarction of inferior wall Presentation: 07/18 23:37 Chief complaint: Patient states: he has been having chest pain and WILLAM arm numbness for ap3 approx one hour now. patient reports the pain to be an 8/10 on the pain scale at this time. patient describes the pain to be feeling like pressure. Coronavirus screen: At this time, the client does not indicate any symptoms associated with coronavirus-19. Ebola Screen: No symptoms or risks identified at this time. Initial Sepsis Screen: Does the patient meet any 2 criteria? No. Patient's initial sepsis screen is negative. Does the patient have a suspected source of infection? No. Patient's initial sepsis screen is negative. Risk Assessment: Do you want to hurt yourself or someone else? Patient reports no desire to harm self or others. Onset of symptoms was July 18, 2023 at 22:30. 23:37 Method Of Arrival: Ambulatory ap3 23:37 Acuity: RAJINDER 2 ap3 Triage Assessment: 23:40 General: Appears in no apparent distress. Behavior is calm, cooperative, appropriate ap3 for age. Pain: Complains of pain in chest, right arm and left arm Pain currently is 8 out of 10 on a pain scale. Quality of pain is described as pressure. Neuro: Level of Consciousness is awake, alert, obeys commands, Oriented to person, place, time, situation. Cardiovascular: Reports chest pain. Respiratory: Airway is patent Respiratory effort is even, unlabored, Respiratory pattern is regular, symmetrical. Historical: - Allergies: 23:39 Lisinopril; ap3 23:39 PENICILLINS; ap3 23:39 Losartan; ap3 - PMHx: 23:39 CVA; Hypertension; ap3 - Immunization history:: Client reports receiving the 2nd dose of the Covid vaccine. - Social history:: Smoking status: Patient reports the use of cigarette tobacco products, smokes one-half pack cigarettes per day. Screenin:40 [facility] ED Fall Risk Assessment (Adult) History of falling in the last 3 months, ap3 including since admission No falls in past 3 months (0 pts). Abuse screen: Denies threats or abuse. Nutritional screening: No deficits noted. Tuberculosis screening: No symptoms or risk factors identified. Assessment: 07/19 00:03 General: Appears uncomfortable, Behavior is calm, cooperative. Pain: Complains of pain kl in chest Pain radiates to left arm and right arm Pain currently is 3 out of 10 on a pain scale. at worst was 7 out of 10 on a pain scale. Pain began 1 hour ago. Neuro: No deficits noted. Cardiovascular: Rhythm is sinus rhythm. Respiratory: No deficits noted. Airway is patent Trachea midline Respiratory effort is even, unlabored, Respiratory pattern is regular, symmetrical. GI: Reports nausea. : No deficits noted. No signs and/or symptoms were reported regarding the genitourinary system. EENT: No deficits noted. No signs and/or symptoms were reported regarding the EENT system. 00:56 Reassessment: PT TRANSFERRING TO [facility]. DR LI, CARDIOLOGY, CONTACTED ABOUT PT bp STATUS CHANGE, ORDERED 1L NS BOLUS. Vital Signs: 07/18 23:37 BP 123 / 88; Pulse 67; Resp 18; Pulse Ox 98% ; Weight 63.5 kg; Height 5 ft. 7 in. ; ap3 Pain 8/10; 23:41 Temp 96.5(TE); kl 23:41 BP 123 / 88; Resp 18; Pulse Ox 98% on R/A; kl 07/19 00:12 Weight 67.5 kg; kl 00:30 BP 109 / 69; Pulse 74; Resp 15; Pulse Ox 96% ; kl 00:50 Pulse 33; kl 00:50 kl 07/18 23:37 Body Mass Index 21.93 (67.50 kg, 170.18 cm) ap3 07/18 23:37 Pain Scale: Adult ap3 00:50 ptt bradycardic moved t room 4 pacing pads applied kl ED Course: 07/18 23:29 Patient arrived in ED. ag3 23:30 Cecilia Yoo PA-C is PHCP. sb4 23:30 Jose Armando Ojeda MD is Attending Physician. sb4 23:39 Triage completed. ap3 23:41 Patient has correct armband on for positive identification. Placed in gown. Bed in low ap3 position. Call light in reach. Side rails up X 1. alarm security or surveillance monitor on. Pulse ox on. NIBP on. 23:41 Arm band placed on right wrist. ap3 23:41 Patient maintains SpO2 saturation greater than 95% on room air. ap3 23:45 Inserted saline lock: 22 gauge in right antecubital area, using aseptic technique. kl 23:49 Contacted [facility] transfer center to initiate transfer. mb4 23:50 Connected with [facility], initiated transfer. mb4 23:55 Inserted saline lock: 20 gauge in left hand, using aseptic technique. kl 07/19 00:17 Head Brain Wo Cont CT In Process Unspecified. EDMS 00:17 [facility] contacted for transfer. [facility] 4 provided 33 minute mb4 ETA. 00:32 XRAY Chest (1 view) In Process Unspecified. EDMS 01:07 No provider procedures requiring assistance completed. Patient transferred, IV remains kl in place. Administered Medications: 07/18 23:50 Drug: Aspirin PO Chewable Tablet 324 mg PO once; 81 mg tablets x 4 Route: PO; jb4 23:59 Drug: morphine IVP or IV 4 mg IVP once over 4 mins Route: IVP; Infused Over: 4 mins; jb4 Site: right antecubital; 07/19 00:14 Follow up: Response: No adverse reaction 07/18 23:59 Drug: Ondansetron IVP 4 mg IVP once; over 2 minutes Route: IVP; Site: right antecubital;jb4 07/19 00:14 Follow up: Response: No adverse reaction 00:01 Drug: Tenecteplase IV 35 mg IV at bolus once {Co-Signature: jb4 (Oz Wong RN).} Route: IV; Rate: bolus; Site: left hand; 00:09 Not Given (Other Intervention Used): TNK FOR STROKE - tenecteplase0.25 mg/kg IV kl at per protocol once; MAX DOSE 25 mg, IVP over 5 seconds 00:23 Drug: Heparin ([place] Drip) 12 units/kg/hr - ([place] [address] units, D5W IV 500 ml) IV at jb4 calculated rate Per protocol; Max initial rate 1000 units/hr {Co-Signature: bp (John Kee RN).} Route: IV; Rate: calculated rate; Site: right antecubital; 00:24 Drug: Heparin (FL-Bolus with thrombolytic) - HEParin IVP 60 units/kg IVP once; Max 4000 jb4 units {Co-Signature: bp (John Kee RN).} Route: IVP; Site: right antecubital; Medication: 01:08 VIS not applicable for this client. Outcome: 07/18 23:45 ER care complete, transfer ordered by MD. miller 07/19 01:07 Transferred by helicopter to [facility] critical Discharge instructions given to patient, Instructed on the need for transfer, Demonstrated understanding of instructions, 01:08 Patient left the ED. Signatures: Dispatcher [employer] EDMS Annalise Chacon RN RN kl Bryson, James, RN RN jb4 Peltier, Brian, RN RN bp Prokisch, Amanda, RN RN ap3 Sherrie Campuzano 4 Gabbie Portillo Cecilia Delgado, PA-C PA-C Nani Santizo RN RN cm10 Bryson, James RN jb4 Peltier, Brian RN bp Corrections: (The following items were deleted from the chart) 07/18 23:39 23:37 Chief complaint: cm10 ap3 07/19 00:09 00:02 TNK FOR STROKE - Tenecteplase IV 15.875 mg IV at per protocol in left hand neyda faye
--- NOTE | 2023-07-18 23:46 | EDPHYS ---
Physician Documentation [facility] Name: Harrison Cameron Age: 63 yrs Sex: Male : 1960 Arrival Date: 07/18/2023 Time: 23:27 Bed 4 Private MD: ED Physician Jose Armando Ojeda HPI: 07/18 23:41 This 63 yrs old Black Male presents to ER via Ambulatory with complaints of Chest sb4 Tightness, Numbness Of Arm. 23:41 Onset: The symptoms/episode began/occurred 1 hour(s) ago. Associated signs and sb4 symptoms: Pertinent positives: vomiting, bilateral arm numbness, Pertinent negatives: shortness of breath. The patient has not experienced similar symptoms in the past. The patient has not recently seen a physician. Historical: - Allergies: 23:39 Lisinopril; ap3 23:39 PENICILLINS; ap3 23:39 Losartan; ap3 - PMHx: 23:39 CVA; Hypertension; ap3 - Immunization history:: Client reports receiving the 2nd dose of the Covid vaccine. - Social history:: Smoking status: Patient reports the use of cigarette tobacco products, smokes one-half pack cigarettes per day. ROS: 23:48 Constitutional: Negative for fever, chills, and weight loss, sb4 23:48 Cardiovascular: Positive for chest pain, 23:48 Abdomen/GI: Positive for nausea and vomiting, 23:48 MS/extremity: 23:48 Neuro: Positive for numbness bilateral arms, 23:48 All other systems are negative, Exam: 23:48 Head/Face: Normocephalic, atraumatic. Eyes: Extra-ocular motions intact. Periorbital sb4 areas with no swelling, redness, or edema. ENT: Mucous membranes moist. Cardiovascular: Regular rate and rhythm with a normal S1 and S2. Respiratory: Lungs have equal breath sounds bilaterally, clear to auscultation and percussion. No rales, rhonchi or wheezes noted. No increased work of breathing, no retractions or nasal flaring. Abdomen/GI: Soft, non-tender, no distension. Skin: Warm, dry with normal turgor. Normal color with no rashes, no lesions, and no evidence of cellulitis. MS/ Extremity: Pulses equal, no cyanosis. Neurovascular intact. Full, normal range of motion. Neuro: Awake and alert, GCS 15, oriented to person, place, time, and situation. Motor strength 5/5 in all extremities. Sensory grossly intact. 23:48 Constitutional: The patient appears alert, awake, uncomfortable, 23:48 ECG was reviewed by the Attending Physician. Vital Signs: 23:37 BP 123 / 88; Pulse 67; Resp 18; Pulse Ox 98% ; Weight 63.5 kg; Height 5 ft. 7 in. ; ap3 Pain 8/10; 23:41 Temp 96.5(TE); kl 23:41 BP 123 / 88; Resp 18; Pulse Ox 98% on R/A; kl 07/19 00:12 Weight 67.5 kg; kl 00:30 BP 109 / 69; Pulse 74; Resp 15; Pulse Ox 96% ; kl 00:50 Pulse 33; kl 00:50 kl 07/18 23:37 Body Mass Index 21.93 (67.50 kg, 170.18 cm) ap3 07/18 23:37 Pain Scale: Adult ap3 00:50 ptt bradycardic moved t room 4 pacing pads applied kl MDM: 07/18 23:30 Patient medically screened. sb4 23:48 Differential diagnosis: ACS, STEMI, NSTEMI, unstable angina, PE, CVA. Data reviewed: sb4 vital signs, nurses notes, EKG, I have discussed the patient's presentation/case with the attending Emergency Department Physician;. Data reviewed:. Consideration of Admission/Observation Patient was admitted/placed on observation. Consideration of Admission/Observation. Counseling: I had a detailed discussion with the patient and/or guardian regarding the historical points, exam findings, and any diagnostic results supporting the discharge/admit diagnosis, the need to transfer to another facility, for higher level of care, [facility] does not immediately have the required specialist. Special discussion:. 23:59 Scoring Tools HEART Score: History: ECG: Age: Risk Factors: > or = 3 Risk factors for sb4 atherosclerotic disease (2), Troponin: Total Score = 6. 07/19 00:29 Management of patient was discussed with the following: spoke with car stereo installer DANA Shultz at [facility] and lombardi developer Dr. Gorman who accept patient for transfer. Care significantly affected by the following chronic conditions: Hypertension. 00:58 HEART Score:. ED course: Patient presents with acute inferior STEMI. Emergent TNK sp4 administered, patient scheduled to [facility] for emergent heart cath via aeromedical transport. . 07/18 23:37 Order name: Basic Metabolic Panel; Complete Time: 00:26 sb4 07/18 23:37 Order name: CBC with Diff; Complete Time: 23:58 sb4 07/18 23:37 Order name: D-Dimer; Complete Time: 00:00 sb4 07/18 23:37 Order name: LFT's; Complete Time: 00:26 sb4 07/18 23:37 Order name: Magnesium; Complete Time: 00:26 sb4 07/18 23:37 Order name: NT PRO-BNP; Complete Time: 00:26 sb4 07/18 23:37 Order name: PT-INR; Complete Time: 00:00 sb4 07/18 23:37 Order name: Troponin HS; Complete Time: 00:26 sb4 07/18 23:37 Order name: XRAY Chest (1 view) sb4 07/18 23:37 Order name: Head Brain Wo Cont CT sb4 07/18 23:37 Order name: EKG; Complete Time: 23:37 sb4 07/18 23:37 Order name: Cardiac monitoring; Complete Time: 23:43 sb4 07/18 23:37 Order name: EKG - Nurse/Tech; Complete Time: 23:43 sb4 07/18 23:37 Order name: IV Saline Lock; Complete Time: 23:43 sb4 07/18 23:37 Order name: Labs collected and sent; Complete Time: 23:43 sb4 07/18 23:37 Order name: O2 Per Protocol; Complete Time: 23:41 sb4 07/18 23:37 Order name: O2 Sat Monitoring; Complete Time: 23:41 sb4 07/19 00:08 Order name: NPO; Complete Time: 00:10 sb4 EC/05 23:48 Rate is 67 beats/min. Rhythm is regular, Normal Sinus Rhythm. KS interval is normal at sb4 186 msec. QRS interval is normal at 94 msec. QT interval is prolonged at [address] Segment is elevated in leads II, III, aVF. ST Segment is depressed in leads I, aVL. Clinical impression: Inferior KS - acute. Interpreted by me. Reviewed by me. Administered Medications: 23:50 Drug: Aspirin PO Chewable Tablet 324 mg PO once; 81 mg tablets x 4 Route: PO; jb4 23:59 Drug: morphine IVP or IV 4 mg IVP once over 4 mins Route: IVP; Infused Over: 4 mins; jb4 Site: right antecubital; 07/19 00:14 Follow up: Response: No adverse reaction 07/18 23:59 Drug: Ondansetron IVP 4 mg IVP once; over 2 minutes Route: IVP; Site: right antecubital;jb4 07/19 00:14 Follow up: Response: No adverse reaction kl 00:01 Drug: Tenecteplase IV 35 mg IV at bolus once {Co-Signature: jb4 (Oz Wong RN).} kl Route: IV; Rate: bolus; Site: left hand; 00:09 Not Given (Other Intervention Used): TNK FOR STROKE - tenecteplase0.25 mg/kg IV kl at per protocol once; MAX DOSE 25 mg, IVP over 5 seconds 00:23 Drug: Heparin ([place] Drip) 12 units/kg/hr - ([place] [address] units, D5W IV 500 ml) IV at jb4 calculated rate Per protocol; Max initial rate 1000 units/hr {Co-Signature: bp (John Kee RN).} Route: IV; Rate: calculated rate; Site: right antecubital; 00:24 Drug: Heparin ([place]-Bolus with thrombolytic) - HEParin IVP 60 units/kg IVP once; Max 4000 jb4 units {Co-Signature: bp (John Kee RN).} Route: IVP; Site: right antecubital; Disposition: 00:58 Co-signature as Attending Physician, Jose Armando Ojeda MD I agree with the assessment sp4 and plan of care. I reviewed the patient's care provided by Advanced Practice Provider \T\ agree w/ the diagnosis \T\ care plan. I personally saw the pt \T\ performed a substantive portion of the visit, incldng all aspects of the (History/Exam/Medical Decision Making). Disposition Summary: 07/18/23 23:45 Transfer Ordered Notes: Transfer Location: [facility] sb4 Reason: Higher level of care sb4 Condition: Critical sb4 Problem: new sb4 Symptoms: are unchanged sb4 Accepting Physician: Dr. Gorman(07/19/23 01:08) neyda Diagnosis - ST elevation (STEMI) myocardial infarction of inferior wall sb4 Forms: - Medication Reconciliation Form sb4 - SBAR form sb4 Critical care time excluding procedures: 00:29 Critical care time: Bedside Care: 7 minutes, Consultation: 10 minutes. Total time: 17 sb4 minutes Signatures: Dispatcher [employer] EDAnnalise Stevens RN RN kl Bryson, James RN RN jb4 Catie Peacock RN RN Cecilia Vail, PAAxelC PA-C sb4 Jose Armando Ojeda MD MD spOz Rodriguez RN4 John Kee RN bp Corrections: (The following items were deleted from the chart) 07/18 23:46 23:41 Onset: The symptoms/episode began/occurred 3.5 hour(s) ago, sb4 sb4 07/19 00:13 07/18 23:45 lombardi developer sb4 sb4 07/19 00:29 00:19 Critical care time: Bedside Care: 7 minutes, Consultation: 7 minutes. Total time: sb4 14 minutes sb4 00:13 Dr. Gorman sb4
[2023-07-18 23:54] LABS: Absolute Lymphocytes (CBC) 5.1 K/uL (0.7-4.9); Hematocrit 46.3 % (39.6-49.0); Lymphocytes % 47.4 % (15.3-44.8); MCV 89.8 fL (80-100); MPV 6.5 fL (7.6-11.3); Platelets 310 thou/uL (152-406); RBC Red Blood Cell Count 5.16 M/uL (4.33-5.43)
[2023-07-18] MEDS ORDERED: TENECTEPLASE 50 MG/10 ML VIAL IV ONE (23:58)
[2023-07-18 23:59] LABS: Protime INR 0.96
[2023-07-18] MEDS ORDERED: ASPIRIN 81 MG CHEWABLE TABLET ONE (23:59)
[2023-07-19] MEDS ORDERED: ONDANSETRON 4 MG/2 ML VIAL ONE (00:06)
[2023-07-19] MEDS ORDERED: MORPHINE 4 MG/ML SYR ONE (00:06)
[2023-07-19 00:24] LABS: ALT/SGPT 22 U/L (16-61); AST/SGOT 28 U/L (15-37); Albumin 3.6 g/dL (3.4-5.0); Alkaline Phosphatase 50 U/L (45-117); BUN Blood Urea Nitrogen 16 mg/dL (7-18); Bicarbonate 28 mEq/L (21-32); Bilirubin Direct < 0.1 mg/dL (0-0.2); Bilirubin Indirect, Calculated ND mg/dL (0.2-0.8); Bilirubin Total 0.4 mg/dL (0.2-1.0); Glomerular Filtration Rate 57 ml/min (=/>90); Glucose Level 154 mg/dL (74-106); NT PRO-BNP 157 pg/mL (<125); Potassium 2.9 mEq/L (3.5-5.1); Protein, Total 8.3 g/dL (6.4-8.2); Sodium Level 132 mEq/L (136-145); Troponin High Sensitivity 22.7 pg/mL (<58.9)
[2023-07-19 00:25] LABS: Magnesium 2.2 mg/dL (1.6-2.4)
[2023-07-19] MEDS ORDERED: HEPARIN/D5W 25,000 UNIT/500 ML BAG IV ONE (00:30)
[2023-07-19] MEDS ORDERED: HEPARIN 5000 UNIT/ML 1 ML VIAL ONE (00:30)
[2023-07-19] MEDS ORDERED: NA CHLORIDE 0.9% 1,000 ML ONE (01:09)
[2023-07-19 01:37] VITALS: TEMP 96.5
[2023-07-19 01:38] VITALS: BP 109/69; O2SAT 96
--- NOTE | 2023-07-19 12:21 | EKG ---
Test Date: 2023-07-18 Test Time: 23:42:04 Audio Director: HYUN MEASUREMENT RESULTS: Intervals: Rate: 67 HI: 186 QRSD: 94 QT: 456 QTc: 481 [place]: P: 66 HI: 186 QRS: 42 T: 126 INTERPRETIVE STATEMENTS: Normal sinus rhythm ST elevation, consider inferior injury or acute infarct Prolonged QT ACUTE TN Consider right ventricular involvement in acute inferior infarct Abnormal ECG Compared to ECG 06/16/2015 07:54:36 ST (T wave) deviation now present Prolonged QT interval now present Myocardial infarct finding now present Electronically Signed On 07-19-23 12:20:02 CDT by Ray Soliz
--- NOTE | 2023-07-19 12:21 | EKG ---
Test Date: 2023-07-18 Test Time: 23:43:08 Power Engineer: HYUN MEASUREMENT RESULTS: Intervals: Rate: 68 FL: 184 QRSD: 92 QT: 460 QTc: 489 [place]: P: 66 FL: 184 QRS: 44 T: 127 INTERPRETIVE STATEMENTS: Normal sinus rhythm Left ventricular hypertrophy with repolarization abnormality Prolonged QT Abnormal ECG Compared to ECG 07/18/2023 23:42:04 Left ventricular hypertrophy now present Early repolarization now present ST (T wave) deviation no longer present Myocardial infarct finding no longer present Electronically Signed On 07-19-23 12:19:52 CDT by Ray Soliz
--- NOTE | 2023-07-19 15:45 | RAD REPORT ---
EXAM DESCRIPTION: RAD - Chest Single View - 07/19/2023 12:31 am CLINICAL HISTORY: The patient is 63 years old and is Male; CHEST PAIN TECHNIQUE: Frontal view of the chest. COMPARISON: No relevant prior studies available. FINDINGS: Lungs: Unremarkable. No consolidation. Pleural space: Unremarkable. No pneumothorax. Heart: Unremarkable. Mediastinum: Unremarkable. Bones/joints: No acute findings. IMPRESSION: No acute findings in the chest. Electronically signed by: Salvador De La Paz MD 07/19/2023 12:38 AM CDT Due to temporary technical issues with the PACS/Fluency reporting system, reports are being signed by the in house radiologists without review as a courtesy to insure prompt reporting. The interpreting radiologist is fully responsible for the content of the report
--- NOTE | 2023-07-19 15:50 | RAD REPORT ---
EXAM DESCRIPTION: CT - Head Brain Wo Cont - 07/19/2023 6:01 am CLINICAL HISTORY: NUMBNESS COMPARISON: None available TECHNIQUE: Axial CT of the head obtained from the skull apex to the skull base without contrast. Thi s exam was performed according to our departmental dose-optimization program, which includes automate d exposure control, adjustment of the mA and/or kV according to patient size and/or use of iterative reconstruction technique. FINDINGS: No acute intracranial hemorrhage identified. No mass, mass effect, shift of the midline, a bnormal extra-axial fluid collection or CT evidence of acute ischemic change identified. The ventricu lar system is unremarkable. No acute abnormalities of the supratentorial white matter, basal gangli a, cerebellum, or brainstem. Bilateral remote basal ganglia lacunar type infarctions. The visualized paranasal sinuses and the mastoid air cells are relatively well aerated. No skull fr acture identified. Visualized orbits and globes are unremarkable. IMPRESSION: 1. No acute intracranial abnormality identified. Electronically signed by: Chris Marino 07/19/2023 12:48 AM CDT Due to temporary technical issues with the PACS/Fluency reporting system, reports are being signed by the in house radiologists without review as a courtesy to insure prompt reporting. The interpreting radiologist is fully responsible for the content of the report
== END 2023-07-19 01:08 | disposition short-term general hospital (02) ==
LOC: ER 23:27
DX: I21.19 ST elevation (STEMI) myocardial infarction involving other coronary artery of inferior wall (principal); I10 Essential (primary) hypertension; F17.210 Nicotine dependence, cigarettes, uncomplicated; Z86.73 Personal history of transient ischemic attack (TIA), and cerebral infarction without residual deficits; Z88.0 Allergy status to penicillin; Z88.8 Allergy status to other drugs, medicaments and biological substances
CPT/HCPCS: 92977; 93005 ×2; 85025; 80048; 36415; 83735; 85610; 85379; 80076; 84484; 83880; 70450; 71045; 99285; J1644; J3101; J7030

== ENCOUNTER 2025-07-27 02:12 | Emergency (ER) | payer OTHER ==
--- NOTE | 2025-07-27 02:41 | ER ---
Nurse's Notes [facility] Name: Harrison Cameron Age: 65 yrs Sex: Male : 1960 Arrival Date: 07/27/2025 Time: 02:12 Bed IW1 [facility] MD: Diagnosis: ED Course: 07/27 02:16 Patient arrived in ED. gm2 02:17 [facility] cp 02:17 Edi Saldana MD is Attending Physician. cp Administered Medications: No medications were administered Outcome: 02:40 Eloped from waiting room, Time discovered patient gone: July 27, 2025 at 02:35 vc1 02:40 Condition: stable 02:40 Patient left the ED. vc1 Signatures: Edi Banda PA-C PA-C cp Calcote, Vanessa, RN RN vc1 Gaby Gordon gm2
== END 2025-07-27 02:40 | disposition left against medical advice (07) ==
LOC: ER 02:12
DX: Z02.9 Encounter for administrative examinations, unspecified (principal)